=== PATIENT | female | born 1975 | race Caucasian/White ===

== ENCOUNTER → 2024-03-27 | Outpatient (CLI) | payer MEDICAID, SELFPAY ==
[2024-03-27 15:56] LABS: Free T3 5.3 pg/mL (2.18-3.98); T4 Free Direct 1.39 ng/dL (0.76-1.46); Thyroid Stim Hormone (TSH) < 0.005 uIU/mL (0.358-3.740)
== END | disposition home or self-care (01) ==
LOC: LAB 14:01
PROVIDERS: PCP Student in an Organized Health Care Education/Training Program; Referring Provider Internal Medicine Endocrinology, Diabetes & Metabolism; Visit Provider Internal Medicine Endocrinology, Diabetes & Metabolism
DX: E05.00 Thyrotoxicosis with diffuse goiter without thyrotoxic crisis or storm (principal)
CPT/HCPCS: 36415; 84439; 84443; 84481

== ENCOUNTER → 2024-07-17 | Outpatient (CLI) | payer MEDICAID, SELFPAY ==
[2024-07-17 14:16] LABS: Free T3 4.3 pg/mL (2.18-3.98); T4 Free Direct 1.29 ng/dL (0.76-1.46); Thyroid Stim Hormone (TSH) < 0.005 uIU/mL (0.358-3.740)
== END | disposition home or self-care (01) ==
LOC: LAB 12:38
PROVIDERS: PCP Student in an Organized Health Care Education/Training Program; Referring Provider Internal Medicine Endocrinology, Diabetes & Metabolism; Visit Provider Internal Medicine Endocrinology, Diabetes & Metabolism
DX: E05.00 Thyrotoxicosis with diffuse goiter without thyrotoxic crisis or storm (principal)
CPT/HCPCS: 36415; 84439; 84443; 84481